=== PATIENT | female | born 1985 | race Native Hawaiian/Other Pacific Islander ===

== ENCOUNTER 2017-11-25 08:45 | Emergency (ER) | payer OTHER ==
[~2017-11-25] VITALS: Ht 162.6 cm; Wt 48.1 kg
[2017-11-25 08:55] VITALS: BP 141/97; TEMP 98.1
== END 2017-11-25 09:47 | disposition home or self-care (01) ==
LOC: ED 08:45
DX: S93.691A Other sprain of right foot, initial encounter (principal); M79.671 Pain in right foot; X50.1XXA Overexertion from prolonged static or awkward postures, initial encounter; Y92.098 Other place in other non-institutional residence as the place of occurrence of the external cause
CPT/HCPCS: 96372; 99283; J1885

== ENCOUNTER 2018-03-03 20:06 | Emergency (ER) | payer OTHER ==
[~2018-03-03] VITALS: Ht 162.6 cm; Wt 44.5 kg
[2018-03-03 21:06] VITALS: BP 112/83; TEMP 98.3
== END 2018-03-03 21:06 | disposition home or self-care (01) ==
LOC: ED 20:06
DX: M79.673 Pain in unspecified foot (principal); M54.89 Other dorsalgia; J02.9 Acute pharyngitis, unspecified
CPT/HCPCS: 99281

== ENCOUNTER 2018-09-05 08:58 | Emergency (ER) | payer OTHER ==
[~2018-09-05] VITALS: Ht 162.6 cm; Wt 54.4 kg
[2018-09-05 09:02] VITALS: BP 113/73; TEMP 98.1
== END 2018-09-05 10:25 | disposition home or self-care (01) ==
LOC: ED 08:58
DX: K04.7 Periapical abscess without sinus (principal); K05.10 Chronic gingivitis, plaque induced
CPT/HCPCS: 99282

== ENCOUNTER 2018-09-16 10:12 | Emergency (ER) | payer OTHER ==
[~2018-09-16] VITALS: Ht 162.6 cm; Wt 54.4 kg
[2018-09-16 11:20] VITALS: BP 10/80; TEMP 98
== END 2018-09-16 11:20 | disposition home or self-care (01) ==
LOC: ED 10:12
DX: K02.9 Dental caries, unspecified (principal); K08.89 Other specified disorders of teeth and supporting structures
CPT/HCPCS: 99282

== ENCOUNTER 2020-08-31 08:42 | Outpatient (CLI) | payer OTHER | END 2020-08-31 20:21 | disposition home or self-care (01) | LOC: RAD 08:42 | PROVIDERS: ATTEND Family Medicine | DX: M54.9 Dorsalgia, unspecified (principal); S39.92XA Unspecified injury of lower back, initial encounter ==

== ENCOUNTER 2020-09-01 14:45 | Emergency (ER) | payer OTHER ==
[~2020-09-01] VITALS: Ht 162.6 cm; Wt 54.4 kg
[2020-09-01 15:40] LABS: PLATELET COUNT 166 K/uL (152-353)
[2020-09-01 20:45] VITALS: BP 111/61; TEMP 98.7
== END 2020-09-01 20:45 | disposition home or self-care (01) ==
LOC: ED 14:45
PROVIDERS: Emergency Medicine Emergency Medical Services
DX: R10.84 Generalized abdominal pain (principal); M54.5 Low back pain
CPT/HCPCS: 36415; 80053; 81000; 81025; 85027; 96374; 96375; 96376; 99284; J2270; Q9963

== ENCOUNTER 2021-01-24 08:19 | Emergency (ER) | payer OTHER ==
[~2021-01-24] VITALS: Ht 162.6 cm; Wt 68.0 kg
[2021-01-24 08:19] VITALS: BP 100/73; TEMP 97.9
== END 2021-01-24 09:28 | disposition home or self-care (01) ==
LOC: ED 08:26
DX: J30.89 Other allergic rhinitis (principal); J40 Bronchitis, not specified as acute or chronic; F17.210 Nicotine dependence, cigarettes, uncomplicated
CPT/HCPCS: 96374; 99284; J1885

== ENCOUNTER 2021-05-31 19:20 | Emergency (ER) | payer OTHER ==
[~2021-05-31] VITALS: Ht 162.6 cm; Wt 55.8 kg
[2021-05-31 22:30] VITALS: BP 110/86; TEMP 98
== END 2021-05-31 22:30 | disposition home or self-care (01) ==
LOC: ED 19:20
DX: J06.9 Acute upper respiratory infection, unspecified (principal); U07.1 COVID-19; F17.210 Nicotine dependence, cigarettes, uncomplicated
CPT/HCPCS: 36415; 87635; 96372; 99283; J1885; U0003

== ENCOUNTER 2022-10-15 17:22 | Emergency (ER) | payer OTHER ==
[~2022-10-15] VITALS: Ht 162.6 cm; Wt 55.8 kg
[2022-10-15 17:22] VITALS: BP 98/67; TEMP 98.2
[2022-10-15 18:09] LABS: PLATELET COUNT 261 K/uL (152-353)
[2022-10-15 18:23] LABS: POTASSIUM 3.9 mmol/L (3.6-5.2)
== END 2022-10-15 19:04 | disposition left against medical advice (07) ==
LOC: ED 17:22
PROVIDERS: Emergency Medicine Emergency Medical Services
DX: R07.0 Pain in throat (principal); F14.10 Cocaine abuse, uncomplicated; F15.10 Other stimulant abuse, uncomplicated; Z53.29 Procedure and treatment not carried out because of patient's decision for other reasons
CPT/HCPCS: 80048; 80307; 81025; 85027; 87651; 99284; J1885

== ENCOUNTER 2023-01-17 10:27 | Emergency (ER) | payer OTHER ==
[~2023-01-17] VITALS: Ht 162.6 cm; Wt 59.0 kg
[2023-01-17 10:34] VITALS: BP 104/78; TEMP 97.3
== END 2023-01-17 10:51 | disposition left against medical advice (07) ==
LOC: ED 10:27
DX: F41.8 Other specified anxiety disorders (principal); R07.89 Other chest pain; R06.02 Shortness of breath; R20.2 Paresthesia of skin; Z53.29 Procedure and treatment not carried out because of patient's decision for other reasons